=== PATIENT | male | born 1945 | race Two or more races ===

== ENCOUNTER 2018-05-17 11:15 | Outpatient (CLI) | payer BC | END 2018-05-17 23:59 | disposition home or self-care (01) | LOC: WOU 11:15 | PROVIDERS: ATTEND Podiatrist Foot & Ankle Surgery | DX: M21.6X2 Other acquired deformities of left foot (principal); M21.6X1 Other acquired deformities of right foot; M77.42 Metatarsalgia, left foot; M77.41 Metatarsalgia, right foot | CPT/HCPCS: 73630-TC; G0463 ==

== ENCOUNTER 2018-08-26 12:00 | Outpatient (CLI) | payer BC ==
[2018-08-26] MEDS ORDERED: DEXAMETHASONE SOD PHOSPHATE 4 MG/ML VIAL IJ ONE (12:30)
[2018-08-26] MEDS ORDERED: ETHYL CHLORIDE SPRAY 1 EA BOTTLE TP ONE (12:30)
== END 2018-08-26 23:59 | disposition home or self-care (01) ==
LOC: WOU 12:00
PROVIDERS: ATTEND Podiatrist Foot & Ankle Surgery
DX: M76.72 Peroneal tendinitis, left leg (principal); L40.50 Arthropathic psoriasis, unspecified; R60.0 Localized edema
CPT/HCPCS: 20550; J1100; J3490

== ENCOUNTER 2018-09-02 11:40 | Outpatient (CLI) | payer BC ==
[2018-09-02] MEDS ORDERED: DEXAMETHASONE SOD PHOSPHATE 4 MG/ML VIAL IJ PRN (13:00)
[2018-09-02] MEDS ORDERED: ETHYL CHLORIDE SPRAY 1 EA BOTTLE TP ONE (13:00)
== END 2018-09-02 23:59 | disposition home or self-care (01) ==
LOC: WOU 11:40
PROVIDERS: ATTEND Podiatrist Foot & Ankle Surgery
DX: M65.9 Synovitis and tenosynovitis, unspecified (principal); S86.312A Strain of muscle(s) and tendon(s) of peroneal muscle group at lower leg level, left leg, initial encounter; X58.XXXA Exposure to other specified factors, initial encounter; Y92.89 Other specified places as the place of occurrence of the external cause; M19.90 Unspecified osteoarthritis, unspecified site; L40.9 Psoriasis, unspecified
CPT/HCPCS: 20550; A6402; J1100; J3490

== ENCOUNTER 2018-09-09 11:25 | Outpatient (CLI) | payer BC | END 2018-09-09 23:59 | disposition home or self-care (01) | LOC: WOU 11:25 | PROVIDERS: ATTEND Podiatrist Foot & Ankle Surgery | DX: L40.50 Arthropathic psoriasis, unspecified (principal); R60.0 Localized edema; M65.872 Other synovitis and tenosynovitis, left ankle and foot; M25.572 Pain in left ankle and joints of left foot | CPT/HCPCS: G0463 ==

== ENCOUNTER 2018-09-23 11:00 | Outpatient (CLI) | payer BC | END 2018-09-23 23:59 | disposition home or self-care (01) | LOC: WOU 11:00 | PROVIDERS: ATTEND Podiatrist Foot & Ankle Surgery | DX: L40.52 Psoriatic arthritis mutilans (principal); R60.0 Localized edema; M25.572 Pain in left ankle and joints of left foot; M65.872 Other synovitis and tenosynovitis, left ankle and foot; M11.272 Other chondrocalcinosis, left ankle and foot; G40.909 Epilepsy, unspecified, not intractable, without status epilepticus; I73.9 Peripheral vascular disease, unspecified; Z79.899 Other long term (current) drug therapy | CPT/HCPCS: G0463 ==

== ENCOUNTER 2018-10-07 11:00 | Outpatient (CLI) | payer BC | END 2018-10-07 23:59 | disposition home or self-care (01) | LOC: WOU 11:00 | PROVIDERS: ATTEND Podiatrist Foot & Ankle Surgery | DX: L40.50 Arthropathic psoriasis, unspecified (principal); R60.0 Localized edema | CPT/HCPCS: G0463 ==

== ENCOUNTER 2018-10-14 11:00 | Outpatient (CLI) | payer BC | END 2018-10-14 23:59 | disposition home or self-care (01) | LOC: WOU 11:00 | PROVIDERS: ATTEND Podiatrist Foot & Ankle Surgery | DX: L40.50 Arthropathic psoriasis, unspecified (principal); S86.311D Strain of muscle(s) and tendon(s) of peroneal muscle group at lower leg level, right leg, subsequent encounter; X58.XXXD Exposure to other specified factors, subsequent encounter; R60.0 Localized edema; M65.872 Other synovitis and tenosynovitis, left ankle and foot; Z79.52 Long term (current) use of systemic steroids | CPT/HCPCS: G0463 ==